=== PATIENT | male | born 1985 | race Caucasian/White ===

== ENCOUNTER 2021-05-09 16:29 | Emergency (ER) | payer SELFPAY ==
[2021-05-09 16:35] VITALS: BP 163/92; PULSE 107; RESP 16; TEMP 37; O2SAT 93; BMI 31.0
--- NOTE | 2021-05-09 16:35 | ED_ITS ---
HPI - Seizure General: Chief Complaint: Seizure Stated Complaint: SEIZURE Time Seen by Provider: 05/09/21 16:31 History of Present Illness: HPI Narrative: Mr. Burrell is a 36-year-old gentleman with history of asthma who presents to the emergency department due to seizure-like episode. He has reportedly been at his baseline health without significant changes. He is unsure of exactly what occurred earlier today however, per at bedside, patient was at [employer]. He returned home which the patient does remember however does not remember anything until waking up in an ambulance. She endorses noticing that he seemed abnormal. He was having abnormal respiration pattern and subsequently had stiffening of the left upper extremity followed by full body. He did not fall or have head strike. This lasted approximately 45 seconds and he had a postictal period. No tongue biting or loss of continence. No history of similar. Patient still feels confused but otherwise denies any complaints or pain. No other known specific provoking, exacerbating, or relieving factors identified. Review of Systems General: Reports: 10 or more systems reviewed and unremarkable except in HPI and below Physical Exam Narrative: EXAM NARRATIVE: GENERAL/CONSTITUTIONAL - well-appearing. Mildly dazed appearance Eyes - PERRL, no conjunctival injection ENMT - Atraumatic external nose and ears. Moist mucous membranes NECK - supple. trachea midline CARDIOVASCULAR - regular rate and rhythm. RESPIRATORY -clear to auscultation bilaterally. ABDOMEN/GI - Nontender/Nondistended. MSK - Extremities without obvious deformity or tenderness to palpation SKIN - Warm, Dry NEURO - alert and appropriately oriented. Cranial nerves II through XII intact. No appreciable focal neurologic deficits. Appears mildly postictal. Course ED course: - Patient was seen and evaluated by me at bedside - Patient placed on cardiac monitors, IV access obtained - Initial evaluation notable for exam as above -Fluids ordered - Labs notable for likely evidence of hemoconcentration and mild dehydration without acute electrolyte derangement on metabolic panel - Imaging notable for negative head and chest - Upon serial reexamination after treatment the patient was improved - Based on patient history, evaluation, labs, and imaging as interpreted the most likely cause of the patient's condition is seizure-like event without history of seizure - The results of ED evaluation were discussed with the patient including seizure precautions, prescriptions and/or symptomatic cares (if applicable) including appropriate and responsible use, followup plan, and return precautions. The patient verbalized understanding and felt safe for discharge. Mental status back to normal. - Patient discharged in satisfactory condition. Vital Signs: Vital signs: Vital Signs Temperature 98.6 F 05/09/21 16:35 Pulse Rate 82 05/09/21 19:13 Respiratory Rate 16 05/09/21 16:35 Blood Pressure 117/81 05/09/21 19:13 Pulse Oximetry 93 05/09/21 16:35 MDM - Seizure Medical Records: Attestation: I reviewed the patient's medical records. Lab Data: Attestation: I reviewed the patient's lab results. Labs: Lab Results 05/09/21 05/09/21 17:45 17:45 WBC 5.6 10^3/uL 10^3/ uL (4.0-10.0) RBC 5.80 10^6/uL H 10 ^6/uL (4.1-5.3) Hgb 17.8 g/dL H g/dL (11.7-16.6) Hct 49.5 % % (42.0-52.0) MCV 85.3 fl fl (80-94) MCH 30.7 pg pg (28.0-34.0) MCHC 36.0 g/dL g/dL (30.0-36.0) RDW 11.7 % L % (12.1-15.1) Plt Count 265 10^3/cmm 10^3 /cmm (130-400) MPV 10.0 fL fL (7.4-10.4) Neut % (Auto) 67.7 % % Lymph % (Auto) 26.1 % % [place] % (Auto) 4.6 % % Eos % (Auto) 0.7 % % Baso % (Auto) 0.5 % % Neut # (Auto) 3.82 10^3/uL 10^3 /uL (1.8-7.7) Lymph # (Auto) 1.5 10^3/uL 10^3/ uL (0.8-4.8) [place] # (Auto) 0.3 10^3/uL 10^3/ uL (0.2-0.9) Eos # (Auto) 0.0 10^3/uL 10^3/ uL (0.0-0.8) Baso # (Auto) 0.0 10^3/uL 10^3/ uL (0.0-0.1) Nucleated RBC % (a uto) 0 % % Nucleated RBCs # 0.0 /100WBC /100W BC Sodium 140 mmol/L mmol/L (136-145) Potassium 4.1 mmol/L mmol/L (3.5-5.1) Chloride 104 mmol/L mmol/L (98-107) Carbon Dioxide 21 mmol/L L mmol/ L (22-29) Anion Gap 19.1 H (5-19) BUN 8 mg/dL mg/dL (6-20) Creatinine 0.9 mg/dL mg/dL (0.7-1.2) GFR Calculation 96.6 mL/min mL/mi n (90-130) Glucose 100 mg/dL mg/dL (65-115) Calculated Osmolal ity 288 mOsm/kg mOsm/ kg (285-295) Calcium 8.6 mg/dL mg/dL (8.5-10.5) Total Bilirubin 0.4 mg/dL mg/dL (0.15-1.2) AST 17 U/L U/L (0-40) ALT 41 U/L U/L (0-41) Alkaline Phosphata se 85 IU/L IU/L (40-130) Total Protein 6.8 g/dL g/dL (6.6-8.7) Albumin 4.5 g/dL g/dL (3.5-5.2) Globulin 2.3 g/dL g/dL (1.3-4.6) TSH 0.88 uIU/mL uIU/m L (0.27-4.20) EKG Data^: EKG 1: Attestation: I personally reviewed and interpreted this EKG as follows: EKG interpretation date: 05/09/21 EKG interpretation time: 17:45 Interpretation: Twelve-lead EKG shows a regular rhythm at a rate of 94. NV interval 218, QRS duration 114, QTc 375. Normal axis. Interpretation: Sinus rhythm. Discharge Plan Discharge Patient Disposition: Home Clinical Impression: New onset seizure, Dehydration Condition: Stable Discharge Orders: Discharge ED (Routine); Ordered 05/09/21 Ordered By: Mal Nguyen Discharge Diet: Usual diet Discharge Activity: Limit activity as instructed Patient Instructions: Dehydration (ED), New-Onset Seizure in Adults (ED) Activity Restrictions/Additional Instructions: Thank you for visiting the emergency department. You were seen and evaluated for seizure-like episode. The exact cause of this is somewhat unclear. This may be the beginning of a seizure disorder or a one-time event. I will refer you for follow-up with neurology. As discussed, we do not typically start antiseizure medications after 1 seizure. Return to the emergency department if you have recurrence of seizure. Do not drive, operate machinery, cook over open flame, swim, or perform other dangerous tasks as discussed. Return to the emergency department for anything that you are concerned about and feel needs emergency department evaluation. Coding Level of Care Code ED Human Resources Supervisor for Nahed Han
--- NOTE | 2021-05-09 16:53 | XRR_ITS ---
PROCEDURE INFORMATION: Exam: XR Chest Exam date and time: 05/09/2021 4:53 PM Age: 36 years old Clinical indication: Other: Seizure; Additional info: New seizure, AMS TECHNIQUE: Imaging protocol: XR of the chest. Views: 1 view. Total images: 1 COMPARISON: No relevant prior studies available. FINDINGS: Lungs: No visible active interstitial or alveolar airspace disease. Pleural spaces: Unremarkable. No pleural effusion. No pneumothorax. Heart/Mediastinum: Cardiac structures and configuration within normal limits. Bones/joints: Unremarkable. XR/XR chest 1V portable [id number] IMPRESSION: Nonacute.
--- NOTE | 2021-05-09 16:53 | CTR_ITS ---
PROCEDURE INFORMATION: Exam: CT Head Without Contrast Exam date and time: 05/09/2021 4:53 PM Age: 36 years old Clinical indication: Condition or disease; Convulsions or seizures; Additional info: Seizure, new TECHNIQUE: Imaging protocol: Computed tomography of the head without contrast. Total images: 205 Radiation optimization: All CT scans at this facility use at least one of these dose optimization techniques: automated exposure control; mA and/or kV adjustment per patient size (includes targeted exams where dose is matched to clinical indication); or iterative reconstruction. COMPARISON: No relevant prior studies available. RADIATION DOSE METRICS: Total DLP (mGy-cm): 864.3 FINDINGS: Brain: No evidence of active or acute intracranial pathologic process, hemorrhage, or trauma. No visible evidence of diffuse cerebral edema or generalized demyelination. No hyperdense MCA or insular ribbon sign. No mass effect. No midline shift. Cerebral ventricles: No ventriculomegaly. Paranasal sinuses: Visualized sinuses are unremarkable. No fluid levels. Mastoid air cells: Visualized mastoid air cells are well aerated. Bones/joints: Unremarkable. No acute fracture. Soft tissues: Unremarkable. CT/CT head wo con* [id number] IMPRESSION: No evidence of active or acute intracranial pathologic process, hemorrhage, or trauma.
--- NOTE | 2021-05-09 16:53 | ECG_ITS ---
[facility] Test Date: 2021-05-09 Pat Name: Helio Burrell Department: Room: Gender: Male Housekeeping Assistant: : [id number] Requested By: Mal Nguyen Order Number: [id number] Rosalio MD: Chris Culp M.D. Measurements Intervals [place] Rate: 94 P: 48 WV: 218 QRS: -11 QRSD: 114 T: 30 QT: 323 QTc: 405 Interpretive Statements SINUS RHYTHM WITH FIRST DEGREE AV BLOCK MODERATE INTRAVENTRICULAR CONDUCTION DELAY [110+ ms QRS DURATION] INTERPRETATION BASED ON A DEFAULT AGE OF 40 YEARS No previous ECG available for comparison Electronically Signed On 05-09-2021 20:40:05 CLOTH HAND by Chris Culp M.D. [id number]
--- NOTE | 2021-05-09 17:07 | PC.NURSE ---
attempted to draw blood pt being taken to radiology via graduate student and stretcher.
[2021-05-09] MEDS: sodium chloride 0.9% 1,000 ML 999 ML IV (17:42)
[2021-05-09 17:53] LABS: Basophils % 0.5 %; Eosinophils % 0.7 %; Hematocrit 49.5 % (42.0-52.0); Hemoglobin 17.8 g/dL (11.7-16.6); Lymphocytes # 1.5 10^3/uL (0.8-4.8); Lymphocytes % 26.1 %; Mean Corpuscular Hemoglobin 30.7 pg (28.0-34.0); Mean Corpuscular Volume 85.3 fl (80-94); Monocytes # 0.3 10^3/uL (0.2-0.9); Monocytes % 4.6 %; Neutrophils # 3.82 10^3/uL (1.8-7.7); Neutrophils % 67.7 %; Nucleated Red Blood Cells % 0 %; Platelet Count 265 10^3/cmm (130-400); Red Cell Distribution Width 11.7 % (12.1-15.1); White Blood Count 5.6 10^3/uL (4.0-10.0)
[2021-05-09 18:22] LABS: Alanine Aminotransferase 41 U/L (0-41); Albumin Level 4.5 g/dL (3.5-5.2); Alkaline Phosphatase 85 IU/L (40-130); Anion Gap 19.1 (5-19); Aspartate Amino Transferase 17 U/L (0-40); Blood Urea Nitrogen 8 mg/dL (6-20); Calcium 8.6 mg/dL (8.5-10.5); Carbon Dioxide 21 mmol/L (22-29); Chloride 104 mmol/L (98-107); Globulin 2.3 g/dL (1.3-4.6); Glomerular Filtration Rate 96.6 mL/min (90-130); Glucose 100 mg/dL (65-115); Osmolality Calculated 288 mOsm/kg (285-295); Potassium 4.1 mmol/L (3.5-5.1); Sodium 140 mmol/L (136-145); Thyroid Stimulating Hormone 0.88 uIU/mL (0.27-4.20); Total Bilirubin 0.4 mg/dL (0.15-1.2); Total Protein 6.8 g/dL (6.6-8.7)
--- NOTE | 2021-05-09 19:06 | PC.NURSE ---
REPORT GIVEN TO SERAFIN MELARA ASSUMED CARE.
[2021-05-09 19:13] VITALS: BP 117/81; BP 120/87; BP 122/83; PULSE 110; PULSE 82; PULSE 93
== END 2021-05-09 22:14 | disposition home or self-care (01) ==
PROVIDERS: Emergency Provider Emergency Medicine
DX: G40.89 Other seizures (principal); E86.0 Dehydration
CPT/HCPCS: 70450; 71045; 80053; 84443; 85025; 93005; 96360; 99284; J7030